=== PATIENT | female | born 1990 ===

== ENCOUNTER 2021-02-07 05:45 | Day surgery (SDC) | payer OTHER ==
[2021-02-07] MEDS ORDERED: MORGIDOX100 MG PO (09:16)
[2021-02-07] MEDS ORDERED: NAPROXEN500 MG PO (09:17)
== END 2021-02-07 16:50 | disposition home or self-care (01) ==
LOC: CIR.AMB 05:45
PROVIDERS: ATTEND Obstetrics & Gynecology
DX: D25.0 Submucous leiomyoma of uterus (principal); N84.0 Polyp of corpus uteri; Z20.822 Contact with and (suspected) exposure to COVID-19

== ENCOUNTER 2024-05-19 05:40 | Day surgery (SDC) | payer OTHER ==
[2024-05-12 09:00] LABS: HEMOGLOBIN 12.9 g/dL (12.0-15.00); MEAN CELL VOLUME 82.2 fL (80.00-100.00); MEAN CORPUSCULAR HEMOGLOBIN 27.1 pg (27.00-32.0); MEAN CORPUSCULAR HGB CONC 32.9 g/dl (32.0-36.0); PLATELET COUNT 293 K/uL (150-450); RED BLOOD COUNT 4.75 M/uL (4.00-6.00); RED CELL DISTRIBUTION WIDTH 13.7 % (11.5-14.5)
[2024-05-12 09:22] LABS: INR 1.09; PARTIAL THROMBOPLASTIN TIME 29.5 SECONDS (22.0-34.0); PROTHROMBIN TIME 11.8 SECONDS (9.0-11.5)
[2024-05-12 09:27] LABS: PH,URINE 6.5 (5.0-8.0); URINE APPEARANCE Clear; URINE BILIRRUBIN Negative (NEGATIVE); URINE BLOOD Negative; URINE COLOR Yellow; URINE GLUCOSE Negative (NEGATIVE); URINE KETONE Negative (NEGATIVE); URINE LEUKOCYTE Negative; URINE NITRATE Negative; URINE PROTEIN Negative (NEGATIVE); URINE UROBILINOGEN 0.2 E.U./dl
[2024-05-12 09:33] LABS: URINE BACTERIA 6687.9 uL (0.0-1933); URINE CAST 1.52 uL (0.0-1.40); URINE EPITHELIAL CELLS 51.7 uL (0.0-38.8); URINE WBC 78.6 uL (0.0-23.2)
[2024-05-12 09:35] LABS: BILIRUBIN TOTAL 0.49 mg/dL (0.3-1.2); CALCIUM 9.3 mg/dL (8.5-10.1); CREATININE SERUM 0.68 mg/dL (0.55-1.02); GFR 99.65; GLOBULINA 3.7 G/DL (2.4-3.5); POTASSIUM 4.39 mEq/L (3.5-5.1); TOTAL PROTEIN 7.7 gm/dL (6.4-8.2)
[~2024-05-19 05:40] MED LIST: MORGIDOX100 MG PO; NAPROXEN500 MG PO
[2024-05-19] MEDS ORDERED: CEFAZOLIN SODIUM 1,000 MG VIAL ONE (06:39)
[2024-05-19] MEDS ORDERED: CHLORHEXIDINE GLUCONATE 120 ML BOTTLE TOP ONE (07:10)
[2024-05-19] MEDS ORDERED: POVIDONE-IODINE 118 ML BOTT TOP ONE (07:10)
[2024-05-19] MEDS ORDERED: MORGIDOX100 MG PO (08:37)
[2024-05-19] MEDS ORDERED: IBU600 MG PO (08:37)
[2024-05-19] MEDS ORDERED: ONDANSETRON HCL 2 MG/ML VIAL ONE (11:41)
== END 2024-05-19 14:35 | disposition home or self-care (01) ==
LOC: CIR.AMB 05:40
PROVIDERS: ATTEND Obstetrics & Gynecology
DX: N85.02 Endometrial intraepithelial neoplasia [EIN] (principal); N85.8 Other specified noninflammatory disorders of uterus; D25.0 Submucous leiomyoma of uterus; N92.0 Excessive and frequent menstruation with regular cycle; F41.9 Anxiety disorder, unspecified; R19.7 Diarrhea, unspecified